=== PATIENT | female | born 1990 | race Caucasian/White ===

== ENCOUNTER 2017-07-27 22:13 | Inpatient (IN) | payer OTHER, BC ==
[~2017-07-27] VITALS: Ht 165.1 cm; Wt 68.0 kg
[~2017-07-27 22:13] MED LIST: BIRTH CONTROL; PROM25 PO; RXCODGUASY PO
[2017-07-27] MEDS ORDERED: Verotin-Gr Cap1 EACH PO (22:35)
[2017-07-27] MEDS ORDERED: VICODIN 5-3001 EACH PO (22:35)
[2017-07-27 22:37] LABS: BASOPHILS ABSOLUTE AUTO 0.02 K/mm3 (0.00-0.23); BASOPHILS PERCENT AUTO 0 % (0-2); EOSINOPHILS ABSOLUTE AUTO 0.08 K/mm3 (0.00-0.68); EOSINOPHILS PERCENT AUTO 1 % (0-6); Hematocrit 37.9 % (33.0-51.0); Hemoglobin 13.1 g/dL (11.5-16.0); IMMATURE GRAN ABSOLUTE AUTO 0.08 K/mm3 (0.00-0.10); IMMATURE GRAN PERCENT AUTO 1 % (0-1); LYMPHOCYTES ABSOLUTE AUTO 3.12 K/mm3 (0.84-5.20); LYMPHOCYTES PERCENT AUTO 24 % (21-46); MONOCYTES PERCENT AUTO 5 % (4-13); Mean Corpuscular HGB 31.9 pg (26.0-34.0); Mean Corpuscular HGB Conc 34.6 g/dL (31.5-36.5); Mean Corpuscular Volume 92 fL (80-100); Mean Platelet Volume 9.6 fL (9.1-12.4); NEUTROPHILS ABSOLUTE AUTO 8.95 K/mm3 (1.96-9.15); NEUTROPHILS PERCENT AUTO 69 % (41-73); Platelet Count 232 K/mm3 (150-400); RDW Coefficient Variation 13.1 % (11.7-14.2); RDW Standard Deviation 43.7 fL (35.1-46.3); Red Blood Cell Count 4.11 M/mm3 (3.80-5.20); White Blood Cell Count 12.95 K/mm3 (4.00-11.30)
[2017-07-28 00:27] LABS: U Amphetamine Screen Not Detected; U Barbituate Screen Not Detected; U Benzodiazapine Screen Not Detected; U Buprenorphine Screen Not Detected; U Cannabinoids Screen DETECTED; U Cocaine Screen Not Detected; U Methadone Screen Not Detected; U Methamphetamine Screen DETECTED; U Opiates Screen Not Detected; U Oxycodone Screen DETECTED; U Phencyclidine Screen Not Detected; U Propoxyphene Screen Not Detected
[2017-07-29 06:24] LABS: Hematocrit 35.3 % (33.0-51.0); Hemoglobin 11.7 g/dL (11.5-16.0); Mean Corpuscular HGB 31.5 pg (26.0-34.0); Mean Corpuscular HGB Conc 33.1 g/dL (31.5-36.5); Mean Platelet Volume 9.6 fL (9.1-12.4); Platelet Count 197 K/mm3 (150-400); RDW Coefficient Variation 13.4 % (11.7-14.2); RDW Standard Deviation 46.8 fL (35.1-46.3); Red Blood Cell Count 3.71 M/mm3 (3.80-5.20); White Blood Cell Count 14.83 K/mm3 (4.00-11.30)
[2017-07-29 06:25] LABS: Mean Corpuscular Volume 95 fL (80-100)
[2017-07-29] MEDS ORDERED: IBUP800 PO (10:51)
[2017-07-29] MEDS ORDERED: Percocet 5-3251 EACH PO (10:52)
[2017-07-29] MEDS ORDERED: DOCU100 PO (10:52)
[2017-08-02 09:04] LABS: Codeine SEE LABOUT RESULTS; Hydrocodone SEE LABOUT RESULTS; Hydromorphone SEE LABOUT RESULTS; MDA SEE LABOUT RESULTS; MDEA SEE LABOUT RESULTS; MDMA SEE LABOUT RESULTS; Morphine SEE LABOUT RESULTS; Norhydrocodone SEE LABOUT RESULTS; Noroxycodone SEE LABOUT RESULTS
== END 2017-07-29 14:10 | disposition home or self-care (01) | DRG 775 ==
LOC: OBS 22:13 → BC 22:15 → OBS 22:24 → BC 22:26
PROVIDERS: Obstetrics & Gynecology
PROC: 10E0XZZ Delivery of Products of Conception, External Approach (ICD-10-PCS; principal; 2017-07-28)
PROC: 10907ZC Drainage of Amniotic Fluid, Therapeutic from Products of Conception, Via Natural or Artificial Opening (ICD-10-PCS; 2017-07-28)
DX: O42.02 Full-term premature rupture of membranes, onset of labor within 24 hours of rupture (principal); Z37.0 Single live birth; Z3A.40 40 weeks gestation of pregnancy; Z88.2 Allergy status to sulfonamides
CPT/HCPCS: 36415; 51702; 85025; 85027; G0480; J1885; J2590; J3010; J7120

== ENCOUNTER 2017-08-10 12:14 | Emergency (ER) | payer OTHER ==
[~2017-08-10] VITALS: Ht 165.1 cm; Wt 63.5 kg
[~2017-08-10 12:14] MED LIST changes: +DOCU100 PO; +IBUP800 PO; +Percocet 5-3251 EACH PO; +VICODIN 5-3001 EACH PO; +Verotin-Gr Cap1 EACH PO
[2017-08-10 13:00] LABS: Calcium, Ionized (POC) 1.13 mmol/L (1.10-1.46); Chloride (POC) 103 mmol/L (98-108); Creatinine (POC) 0.7 mg/dL (0.6-1.0); Glucose (ISTAT POC) 102 mg/dL (70-99); Hemoglobin (POC) 15.3 g/dL (12.0-16.0); Potassium (POC) 3.5 mmol/L (3.5-5.5); Sodium (POC) 139 mmol/L (135-148); Total CO2 (POC) 25 mmol/L (21-32)
[2017-08-10] MEDS ORDERED: IBUP800 PO (14:00)
== END 2017-08-10 14:10 | disposition home or self-care (01) ==
LOC: ER 12:14
PROVIDERS: Emergency Medicine
DX: O72.1 Other immediate postpartum hemorrhage (principal); O99.345 Other mental disorders complicating the puerperium; F41.9 Anxiety disorder, unspecified; Z88.2 Allergy status to sulfonamides; Z79.899 Other long term (current) drug therapy; Z79.891 Long term (current) use of opiate analgesic
CPT/HCPCS: 36415; 80047; 85014; 99284

== ENCOUNTER 2017-12-12 16:45 | Emergency (ER) | payer OTHER ==
[~2017-12-12] VITALS: Ht 167.6 cm; Wt 59.0 kg
[2017-12-12] MEDS ORDERED: Tylenol325 MG PO (17:37)
== END 2017-12-12 17:48 | disposition home or self-care (01) ==
LOC: ER 16:45
DX: T14.90XA Injury, unspecified, initial encounter (principal); M25.532 Pain in left wrist; Z88.2 Allergy status to sulfonamides; Z79.899 Other long term (current) drug therapy; V49.49XA Driver injured in collision with other motor vehicles in traffic accident, initial encounter
CPT/HCPCS: 29125; 71046; 73110; 99284; L3917

== ENCOUNTER 2018-03-29 12:44 | Emergency (ER) | payer OTHER ==
[~2018-03-29] VITALS: Ht 165.1 cm; Wt 54.4 kg
[~2018-03-29 12:44] MED LIST changes: +Tylenol325 MG PO
[2018-03-29] MEDS ORDERED: KETO10 PO (13:32)
== END 2018-03-29 13:38 | disposition home or self-care (01) ==
LOC: ER 12:44
DX: G56.02 Carpal tunnel syndrome, left upper limb (principal)
CPT/HCPCS: 73110; 99283-25

== ENCOUNTER 2018-11-24 11:32 | Inpatient (IN) | payer OTHER ==
[~2018-11-24] VITALS: Ht 165.1 cm; Wt 68.1 kg
[~2018-11-24 11:32] MED LIST changes: +KETO10 PO
[2018-11-24] MEDS ORDERED: Verotin-Gr Cap1 EACH PO (12:09)
[2018-11-24] MEDS ORDERED: ABAT250V (12:09)
[2018-11-24] MEDS ORDERED: Percocet 5-3251 EACH PO (12:10)
[2018-11-24 12:14] LABS: BASOPHILS ABSOLUTE AUTO 0.04 K/mm3 (0.00-0.23); BASOPHILS PERCENT AUTO 0 % (0-2); EOSINOPHILS ABSOLUTE AUTO 0.36 K/mm3 (0.00-0.68); EOSINOPHILS PERCENT AUTO 3 % (0-6); Hematocrit 35.5 % (33.0-51.0); Hemoglobin 11.7 g/dL (11.5-16.0); IMMATURE GRAN ABSOLUTE AUTO 0.07 K/mm3 (0.00-0.10); IMMATURE GRAN PERCENT AUTO 1 % (0-1); LYMPHOCYTES ABSOLUTE AUTO 2.53 K/mm3 (0.84-5.20); LYMPHOCYTES PERCENT AUTO 18 % (21-46); MONOCYTES ABSOLUTE AUTO 0.67 K/mm3 (0.16-1.47); MONOCYTES PERCENT AUTO 5 % (4-13); Mean Corpuscular HGB 30.4 pg (26.0-34.0); Mean Corpuscular Volume 92 fL (80-100); NEUTROPHILS PERCENT AUTO 73 % (41-73); Platelet Count 227 K/mm3 (150-400); RDW Coefficient Variation 13.2 % (11.7-14.2); RDW Standard Deviation 43.5 fL (35.1-46.3); Red Blood Cell Count 3.85 M/mm3 (3.80-5.20); White Blood Cell Count 13.77 K/mm3 (4.00-11.30)
[2018-11-24 15:13] LABS: U Amphetamine Screen Not Detected; U Barbituate Screen Not Detected; U Benzodiazapine Screen Not Detected; U Buprenorphine Screen Not Detected; U Cannabinoids Screen DETECTED; U Cocaine Screen Not Detected; U Methadone Screen Not Detected; U Methamphetamine Screen Not Detected; U Opiates Screen Not Detected; U Oxycodone Screen DETECTED; U Phencyclidine Screen Not Detected; U Propoxyphene Screen Not Detected
--- NOTE | 2018-11-24 18:54 | NUR ---
1200 pt states to rn that she uses thc, and occasionally has to medicate with a percocet. last had one yesterday. and before that was a week ago. dr. soto wants a utox due to her being positive in the office twice and not showing up for multiple appointments.
--- NOTE | 2018-11-24 22:05 | NUR ---
FELIPE, CPS WORKER CALLED TO NOTIFY HER OF PT TESTING POSITIVE FOR OPIATES DURING AND ON ADMISSION TO [facility] WHILE IN LABOR. PT STATES SHE HAD A WRITTEN PRESCRIPTION FOR OXYCODONE A LONG TIME AGO BUT SO LONG AGO SHE "DOESNT REMEMBER RECEIVING THE PRESCRIPTION". PT STATES SHE TAKES OXYCODONE FOR THE BACK PAIN BUT IN NOTES STATES SHE WAS TAKING IT FOR PELVIC PAIN. RN RECIEVED UNCLEAR ANSWER FROM PT WHEN RN ASKED IF SHE GETS PERCOCET MEDICATION FROM A PHARMACY. FELIPECPS WORKER TO CALL [facility]. FELIPE WILL COME TO TALK TO MOM IF SHE IS TOLD TO GO INVESTIGATE SITUATION. FELIPE REQUESTS TO BE NOTIFIED ON MORNING OF 11/25/18 ON D/C TIME OF PT AND NB. WILL PASS ONTO DAY SHIFT NURSE PO CURRENT NOC CHARGE NURSE.
[2018-11-25 06:05] LABS: Hematocrit 34.3 % (33.0-51.0); Hemoglobin 11.2 g/dL (11.5-16.0); Mean Corpuscular HGB 30.4 pg (26.0-34.0); Mean Corpuscular HGB Conc 32.7 g/dL (31.5-36.5); Mean Corpuscular Volume 93 fL (80-100); Mean Platelet Volume 9.8 fL (9.1-12.4); Platelet Count 228 K/mm3 (150-400); RDW Coefficient Variation 13.4 % (11.7-14.2); RDW Standard Deviation 44.6 fL (35.1-46.3); Red Blood Cell Count 3.69 M/mm3 (3.80-5.20); White Blood Cell Count 16.51 K/mm3 (4.00-11.30)
--- NOTE | 2018-11-25 15:30 | NUR ---
PT DISCHARG[place] [facility] [place] NO ACUTE DISTRESS NOTED. IV DCD WNL. DISCHARGE INSTRUCTIONS REVIEWED WITH PT, PT VERBALIZED UNDERSTANDING AND DENIES ANY FURTHER QUESTIONS OR CONCERNS.
--- NOTE | 2018-11-26 13:39 | NUR ---
RN CHECKED PT VE, THEN WENT TO OR TO OBTAIN ORDERS FROM [facility] TO ADMIT PT, THIS WAS ARROUND 1155 ON 11/24/18
== END 2018-11-25 15:18 | disposition home or self-care (01) | DRG 807 ==
LOC: OBS 11:32 → BC 11:33 → OBS 11:46 → BC 19:44
PROVIDERS: Advanced Practice Midwife; ADMIT Nurse Practitioner Obstetrics & Gynecology
PROC: 10E0XZZ Delivery of Products of Conception, External Approach (ICD-10-PCS; principal; 2018-11-24)
PROC: 6A550ZT Pheresis of Cord Blood Stem Cells, Single (ICD-10-PCS; 2018-11-24)
PROC: 3E0R3BZ Introduction of Anesthetic Agent into Spinal Canal, Percutaneous Approach (ICD-10-PCS; 2018-11-24)
PROC: 00HU33Z Insertion of Infusion Device into Spinal Canal, Percutaneous Approach (ICD-10-PCS; 2018-11-24)
DX: O70.0 First degree perineal laceration during delivery (principal); Z37.0 Single live birth; O71.89 Other specified obstetric trauma; Z3A.37 37 weeks gestation of pregnancy
CPT/HCPCS: 36415; 51702; 85025; 85027; J0290; J1885; J2590; J3010; J7120

== ENCOUNTER 2019-03-13 19:27 | Emergency (ER) | payer OTHER ==
[~2019-03-13] VITALS: Ht 167.6 cm; Wt 63.5 kg
[~2019-03-13 19:27] MED LIST changes: +ABAT250V
[2019-03-13] MEDS ORDERED: SUBOXONE 8 MG-1 EACH SL (19:34)
== END 2019-03-13 19:42 | disposition left against medical advice (07) ==
LOC: ER 19:27
DX: Z53.21 Procedure and treatment not carried out due to patient leaving prior to being seen by health care provider (principal)

== ENCOUNTER 2021-04-22 01:58 | Emergency (ER) | payer OTHER ==
[~2021-04-22 01:58] MED LIST changes: +SUBOXONE 8 MG-1 EACH SL
== END 2021-04-22 02:24 | disposition left against medical advice (07) ==
LOC: ER 01:58
DX: Z53.21 Procedure and treatment not carried out due to patient leaving prior to being seen by health care provider (principal)

== ENCOUNTER 2021-07-09 18:52 | Emergency (ER) | payer OTHER ==
[~2021-07-09] VITALS: Ht 160 cm; Wt 63.5 kg
[2021-07-09 19:46] LABS: Source, Urine Clean Catch
[2021-07-09 19:48] LABS: Bilirubin, Urine Neg (Neg); Blood, Urine Neg (Neg); Glucose Qualitative, Urine Neg (Neg); Ketones, Urine 4+ (Neg); Leukocyte Esterase, Urine 2+ (Neg); Nitrite, Urine Neg (Neg); Protein, Urine 2+ (Neg); Specific Gravity, Urine 1.015 (1.003-1.022); Urobilinogen, Urine NORM (Normal); pH, Urine 6.5 (5.0-8.0)
[2021-07-09 19:55] LABS: Appearance, Urine Clear (Clear); Color, Urine Yellow (P-Yellow)
[2021-07-09 19:56] LABS: Bacteria Mod /hpf; Red Blood Cells, Urine 0-2 /hpf (0-2); Squamous Epithelial Cells Few /hpf (Few)
[2021-07-09 20:02] LABS: U Amphetamine Screen DETECTED; U Barbituate Screen Not Detected; U Benzodiazapine Screen Not Detected; U Buprenorphine Screen DETECTED; U Cannabinoids Screen Not Detected; U Cocaine Screen Not Detected; U Methadone Screen Not Detected; U Methamphetamine Screen DETECTED; U Opiates Screen DETECTED; U Oxycodone Screen Not Detected; U Phencyclidine Screen Not Detected; U Propoxyphene Screen Not Detected
== END 2021-07-09 21:14 | disposition left against medical advice (07) ==
LOC: ER 18:52
PROVIDERS: Emergency Medicine
DX: O99.322 Drug use complicating pregnancy, second trimester (principal); F19.139 Other psychoactive substance abuse with withdrawal, unspecified; O99.891 Other specified diseases and conditions complicating pregnancy; R10.9 Unspecified abdominal pain; Z88.2 Allergy status to sulfonamides; Z3A.27 27 weeks gestation of pregnancy
CPT/HCPCS: 76816; 81001; 87086; 99284-25

== ENCOUNTER 2025-01-30 22:14 | Emergency (ER) | payer OTHER ==
[~2025-01-30] VITALS: Ht 165.1 cm; Wt 70.3 kg
[2025-01-30] MEDS ORDERED: Tobramycin 0.3% Opth Soln 5 ML RIGHTEYE ONE (23:40)
[2025-01-30] MEDS ORDERED: CEPH500 PO (23:45)
[2025-01-31 00:16] VITALS: BP 122/79
== END 2025-01-31 00:23 | disposition home or self-care (01) ==
LOC: ER 22:14
DX: S00.83XA Contusion of other part of head, initial encounter (principal); V58.4XXA Person boarding or alighting a pick-up truck or van injured in noncollision transport accident, initial encounter; Z88.2 Allergy status to sulfonamides; Z79.899 Other long term (current) drug therapy
CPT/HCPCS: 70486; 99284-25; A9270